=== PATIENT | male | born 1990 | race Caucasian/White ===

== ENCOUNTER 2017-03-05 20:57 | Emergency (ER) | payer BC ==
[~2017-03-05] VITALS: Ht 175.3 cm; Wt 82.0 kg
[2017-03-05 21:05] VITALS: Ht 175.3 cm; Wt 82.0 kg
[2017-03-05] MEDS ORDERED: XYLOCAINE 1%/SOD BICARB 20 ML VIAL INFIL ONE (21:45)
--- NOTE | 2017-03-05 21:51 | EMERGENCY ROOM VISIT NOTE ---
ED Visit Note First contact with patient: 21:25 CHIEF COMPLAINT: Ear laceration HISTORY OF PRESENT ILLNESS: This is a 26-year-old male patient presents to the emergency department via EMS with concern for fall approximately one hour ago with laceration to the right ear. Patient admits to drinking tonight. States he was goofing around, is tripped and fell, striking his head. His friend who is with him states he had positive loss of consciousness for about 2-3 minutes. Complaining of a laceration to the right ear. There is active bleeding. Denies neck pain. There is no bleeding from the ear canal. There is no facial pain. The patient's tetanus shot is up to date. REVIEW OF SYSTEMS: A 6 system review of systems was completed with positives and pertinent negatives listed in the HPI. ALLERGIES: NKA MEDICATIONS: No medications PMH: No significant medical or surgical history SOCIAL HISTORY: Lives at home. He is from out of town visiting for the weekend PHYSICAL EXAM: Vital Signs: Reviewed Nurse's notes, vital signs stable. VITALS - Vitals are noted on the nurse's note and reviewed by myself. Vital signs stable. GENERAL - Alert, in no acute distress, non-diaphoretic, well-developed well- nourished. The patient is visibly intoxicated. SKIN - The skin was without obvious lacerations, abrasions, or rashes. There is no tenting of the skin. Capillary reflex less than 2 seconds. HEENT - Normocephalic, atraumatic. PERRLA. EOMI. Conjunctiva with mild injection without icterus. Tympanic membranes without erythema or effusion bilaterally no hemotympanum. External auditory canals are clear. Nares patent bilaterally. No epistaxis. Oropharynx without erythema or exudate. Uvula midline. Oral mucosal moist. No lymphadenopathy. Neck is supple without cervical spine tenderness. SKIN: There is a 6 cm laceration of the skin behind the right ear extending from the apex to just above the lobe, whose edges are gaping apart. The cartilage is visible and is intact. There is an abrasion to the posterior pinna of the ear. There is active bleeding and no foreign material in the wound. Capillary refill less than two seconds. Normal sensation to light and sharp touch. HEART - Regular rate and rhythm without murmurs gallops or rubs. Peripheral pulses 2+. LUNGS - Clear to auscultation bilaterally without wheezes, rales or rhonchi. ABDOMEN - Positive bowel sounds x 4. Normal tympanic percussion. Soft, nontender, without masses or organomegaly. MUSCULOSKELETAL - Gross motor function of the upper and lower extremities intact. NEUROLOGIC - The patient is visibly intoxicated. EMERGENCY DEPARTMENT COURSE: I examined the patient. Patient was seen and evaluated by myself. Aspiration precautions were instituted, though patient is uncooperative to stay in position, as he is quite alert and ambulating. He is visibly intoxicated and continues to insist on leaving. I did explain the patient's ear laceration to him, and he then agreed to stay and have this addressed. The patient was placed on the cardiac/vascular sonographer and pulse oximetry was monitored throughout the entire stay in the emergency department. Labs were collected. Patient's medical alcohol was found to be elevated at 266.2 mg/dL. CT imaging of the patient's brain and C-spine were negative for any abnormalities. Patient was monitored in the emergency department for greater than 10 hours. The patient eventually was awoken and educated on today's visit. They were encouraged to refrain from heavy drinking. All labs and diagnostics were reviewed. In the evaluation and treatment of this patient, the following differential diagnoses were considered: Hypoglycemia, Barbiturate Toxicity, Benzodiazepine Toxicity, Depression and Suicidality, Diabetic Ketoacidosis, Encephalitis, Ethylene Glycol Toxicity, Meningitis, Metabolic Acidosis, Opioid Toxicity, CVA, TIA, Intracranial Abnormality, Acute Psychosis, Amongst Others. Verbal consent was obtained to perform the procedure. Using sterile technique the wound was cleaned with Betadine. The area was sterilely draped. 2 ml of 1% buffered lidocaine was used to anesthetize the laceration on the ear. Once the patient was numb, the wound was copiously irrigated under pressure with sterile saline. The wound was explored and was as described above. The patient moved around frequently during the procedure, touching the sterile field multiple times, and generally complicating the procedure process. The laceration was repaired using a combination of running stitch and simple interrupted 6-0 nylon sutures with the wound edges being well approximated. Hemostasis was achieved. The area was cleaned with sterile saline and dressed with bacitracin ointment and bandage. The patient was discharged home in good condition after appropriate monitoring period related to intoxication. Current/Historical Medications No Active Prescriptions or Reported Meds Allergies Coded Allergies: No Known Allergies (Unverified , 03/05/17) Vital Signs Date Time Temp Pulse Resp B/P (MAP) Pulse Ox O2 Delivery O2 Flow Rate FiO2 03/06/17 07:37 36.7 100 16 138/62 99 03/06/17 07:19 96 03/06/17 06:12 73 16 125/101 99 Room Air 03/06/17 04:47 74 16 138/71 99 Room Air 03/06/17 04:22 62 03/06/17 03:21 69 16 119/65 98 Room Air 03/06/17 00:37 87 16 153/70 97 Room Air 03/06/17 00:25 90 03/05/17 22:29 89 16 125/79 97 Room Air 03/05/17 22:20 Room Air 03/05/17 22:19 Room Air 03/05/17 21:05 37.0 106 20 121/96 97 Room Air Laboratory Results 03/05/17 21:58 Test 03/05/17 21:58 Anion Gap 3.0 mmol/L (3-11) Est Creatinine Clear Calc Drug Dose 86.3 ml/min Estimated GFR () 86.9 Estimated GFR (Non- 75.0 BUN/Creatinine Ratio 11.4 (10-20) Calcium Level 8.6 mg/dl (8.5-10.1) Ethyl Alcohol mg/dL 266.2 mg/dl (0-3) Departure Information Impression Primary Impression: Alcohol intoxication Additional Impressions: Laceration of right external ear Head injury with loss of consciousness Dispostion Home / Self-Care Condition GOOD Prescriptions No Active Prescriptions or Reported Meds Referrals No Doctor, Assigned (PCP) Patient Instructions ED Alcohol Intoxication, ED Head Injury Closed, ED Laceration All, [facility] Additional Instructions Do not drink any further alcohol today and avoid such excessive drinking in the future. Drink plenty of fluids today to stay hydrated. You received sutures on your right ear laceration. You should see your PCP in the next 1-2 days for recheck of your wound. Follow-up with your PCP, in urgent care, or ER for suture removal in 8-10 days. Keep wound clean and dry. Do not allow any crusting or dried blood to accumulate on sutures. If this occurs, use a 1:1 solution of hydrogen peroxide/ water on a Q-tip to clean the wound. Use an antibiotic ointment for 3-4 days, then let wound dry. Ice and elevate for swelling and pain. Ibuprofen 600 mg and Tylenol 1000 mg every 6 hrs as needed for pain. Keep covered when in sun until sutures removed then SPF 50 or higher for one year. Vitamin E oil if desired two weeks after suture removal for reduction of scar. Please seek immediate medical attention for any signs of infection (increasing redness, swelling, pus drainage, streaking up the arm, fever/chills). Problem Qualifiers Primary Impression: Alcohol intoxication Complication of substance-induced condition: uncomplicated Qualified Codes: F10.920 - Alcohol use, unspecified with intoxication, uncomplicated Additional Impressions: Laceration of right external ear Encounter type: initial encounter Qualified Codes: S01.311A - Laceration without foreign body of right ear, initial encounter
[2017-03-05 22:25] LABS: BUN/CREATININE RATIO 11.4 (10-20); CALCIUM 8.6 mg/dl (8.5-10.1); CREATININE 1.32 mg/dl (0.60-1.40); POTASSIUM 4.7 mmol/L (3.5-5.1)
--- NOTE | 2017-03-05 22:33 | DIAGNOSTIC IMAGING REPORT ---
CT SCAN OF THE BRAIN WITHOUT IV CONTRAST CLINICAL HISTORY: Trauma. Fall. COMPARISON STUDY: No priors. TECHNIQUE: Unenhanced axial CT scan of the brain is performed from the vertex to the skull base. A dose lowering technique was utilized adhering to the principles of ALARA. CT DOSE: 1117.04 mGy.cm FINDINGS: Brain parenchyma: The brain parenchyma is normal in appearance. There is no hemorrhage, mass effect, or evidence of acute territorial ischemia by CT criteria. Garza-white matter is preserved. No extra-axial fluid collection is seen. Ventricles, sulci, cisterns: Normal in configuration. Intracranial vasculature: The visualized intracranial vasculature at the skull base is normal in appearance. Calvarium: There is no depressed calvarial fracture. Sinuses and mastoids: There is trace fluid within the right maxillary antrum. Minimal mucosal thickening is present within both maxillary antra. The remaining visualized paranasal sinuses are clear. The mastoid air cells are well pneumatized. Orbits: The bony orbits are grossly intact. IMPRESSION: No acute intracranial abnormality. Electronically signed by: Wilmer Hurley M.D. 03/05/2017 10:32 PM Dictated Date/Time: 03/05/2017 10:29 PM
--- NOTE | 2017-03-05 22:43 | DIAGNOSTIC IMAGING REPORT ---
CT SCAN OF THE CERVICAL SPINE CLINICAL HISTORY: Trauma. Intoxication. Fall. COMPARISON STUDY: No priors. TECHNIQUE: CT scan of the cervical spine is performed from the skull base to the upper thoracic spine. Images are reviewed in the axial, sagittal, and coronal planes. IV contrast was not administered for this examination. A dose lowering technique was utilized adhering to the principles of ALARA. CT DOSE: Reported separately under the concurrently performed CT scan of the brain. FINDINGS: Skeletal structures: The skeletal structures are well mineralized. There is no evidence of fracture or subluxation involving the cervical spine. 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 There is congenital prominence/enlargement of the left facet joint at C2-C3 in the right facet joint at C4-C5. Vertebral body height and alignment are maintained. There is straightening of the cervical lordosis. The odontoid process and lateral masses are intact. The atlantoaxial articulation is preserved. The spinous processes appear intact. Intervertebral discs: The disc spaces are well maintained. Central canal: Widely patent. Soft tissues: The prevertebral and paraspinous soft tissues are within normal limits. Calvarium: The visualized calvarium at the skull base appears intact. Brain parenchyma: Partially visualized brain parenchyma the skull base is within normal limits. Sinuses and mastoids: Trace mucosal thickening is seen within the maxillary antra. The mastoid air cells are well pneumatized. Lung apices: Clear as visualized. IMPRESSION: There is no evidence of fracture or subluxation involving the cervical spine. Electronically signed by: Wilmer Hurley M.D. 03/05/2017 10:41 PM Dictated Date/Time: 03/05/2017 10:37 PM
[2017-03-06 07:37] VITALS: BP 138/62; PULSE 100; TEMP 36.7; O2SAT 99
== END 2017-03-06 07:39 | disposition home or self-care (01) ==
LOC: EDBD 20:57 → C.EDB 20:58
DX: S01.311A Laceration without foreign body of right ear, initial encounter (principal); S09.90XA Unspecified injury of head, initial encounter; W01.0XXA Fall on same level from slipping, tripping and stumbling without subsequent striking against object, initial encounter; F10.129 Alcohol abuse with intoxication, unspecified; Y90.8 Blood alcohol level of 240 mg/100 ml or more